=== PATIENT | male | born 1960 | race Caucasian/White ===

== ENCOUNTER 2021-12-20 10:36 | Emergency (ER) | payer MEDICAID, OTHER ==
[~2021-12-20] VITALS: Ht 180.3 cm; Wt 63.1 kg
[2021-12-20 10:45] VITALS: BP 139/84
[2021-12-20 11:46] LABS: Albumin 3.4 g/dL (3.4-5.0); BUN/Creatinine Ratio 14.3; Calcium 8.5 mg/dL (8.5-10.1); Magnesium 1.9 mg/dL (1.6-2.6); Potassium 3.8 mmol/L (3.5-5.1)
[2021-12-20 11:49] LABS: Bilirubin, Total 0.6 mg/dL (0.2-1.0); Lactic Acid w/Reflex 2.4 mmol/L (0.4-2.0); Total Protein 6.8 g/dL (6.4-8.2)
[2021-12-20 11:56] LABS: Basophils # (auto) 0.1 10 ^3/uL (0-0.2); Eosinophils # (auto) 0 10 ^3/uL (0-0.8); Hemoglobin 12.3 g/dL (13.5-17.5); Neutrophils # (auto) 6.5 10 ^3/uL (1.6-8.6)
[2021-12-20 12:00] LABS: Basophils % (auto) 0.9 % (0.0-2.0); Eosinophils % (auto) 0.3 % (0.0-7.0); Hematocrit 35.8 % (41.0-53.0); Lymphocytes # (auto) 0.8 10 ^3/uL (0.4-5.4); Mean Corpuscular Hemoglobin 34.8 pg (28.0-32.0); Mean Corpuscular Hgb Conc. 34.3 g/dL (32.0-36.0); Mean Corpuscular Volume 101.6 fL (80.0-100.0); Monocytes # (auto) 0.5 10 ^3/uL (0-1.3); Monocytes % (auto) 5.9 % (0.0-12.0); Neutrophils % (auto) 82.9 % (37.0-80.0); Red Blood Cells 3.52 10^6/uL (4.5-5.90); White Blood Cell 7.8 10^3/uL (4.4-10.8)
[2021-12-20] MEDS ORDERED: CEFD300C2 PO (19:03)
[2021-12-20] MEDS ORDERED: NAP500T PO (19:04)
== END 2021-12-20 20:31 | disposition home or self-care (01) ==
LOC: ER 10:36
DX: M34.1 CR(E)ST syndrome (principal); S60.949A Unspecified superficial injury of unspecified finger, initial encounter; D75.89 Other specified diseases of blood and blood-forming organs; R94.31 Abnormal electrocardiogram [ECG] [EKG]
CPT/HCPCS: 36415; 73200; 80053; 83605; 83735; 84443; 84484; 85025; 87040; 93005

== ENCOUNTER 2021-12-25 09:09 | Inpatient (IN) | payer MEDICAID ==
[~2021-12-25] VITALS: Ht 160 cm; Wt 64.4 kg
[~2021-12-25 09:09] MED LIST: CEFD300C2 PO; NAP500T PO
[2021-12-25] MEDS ORDERED: KETOROLAC TROMETH 30 MG/ML 1ML VIAL IV ONE (10:15)
[2021-12-25] MEDS ORDERED: PIPERACILLIN-TAZOB 3.375GM 100 ML IV ONE (10:15)
[2021-12-25 10:23] LABS: Basophils # (auto) 0.1 10 ^3/uL (0-0.2); Eosinophils # (auto) 0.1 10 ^3/uL (0-0.8); Lymphocytes # (auto) 1.7 10 ^3/uL (0.4-5.4); Monocytes # (auto) 0.5 10 ^3/uL (0-1.3); Red Cell Distribution Width 13.8 % (11.8-14.3)
[2021-12-25 10:24] LABS: Basophils % (auto) 1.1 % (0.0-2.0); Eosinophils % (auto) 1.2 % (0.0-7.0); Hematocrit 36.3 % (41.0-53.0); Lymphocytes % (auto) 19.1 % (10.0-50.0); Mean Corpuscular Hemoglobin 33.6 pg (28.0-32.0); Mean Corpuscular Hgb Conc. 33.1 g/dL (32.0-36.0); Mean Corpuscular Volume 101.2 fL (80.0-100.0); Monocytes % (auto) 5.7 % (0.0-12.0); Neutrophils # (auto) 6.4 10 ^3/uL (1.6-8.6); Neutrophils % (auto) 72.9 % (37.0-80.0); Red Blood Cells 3.59 10^6/uL (4.5-5.90); White Blood Cell 8.7 10^3/uL (4.4-10.8)
[2021-12-25 10:41] LABS: CRP High Sensitivity 0.64 mg/dL (< 0.3); Calcium 8.7 mg/dL (8.5-10.1)
[2021-12-25 12:07] LABS: Urine Bacteria NONE SEEN /hpf (None Seen); Urine Blood TRACE /uL (Negative); Urine Specific Gravity 1.003 (1.001-1.035); Urine WBC <1 /hpf (0 - 3)
[2021-12-25] MEDS: SODIUM CHLORIDE 0.9% 1,000 ML IV SCH ×2 (12:45→18:51)
[2021-12-25] MEDS ORDERED: hydrALAZINE HCL 20 MG/ML VL IV PRN (12:45)
[2021-12-25] MEDS ORDERED: SODIUM CHLORIDE 0.9% 1,000 ML IV ONE (12:45)
[2021-12-25] MEDS ORDERED: VANCOMYCIN PER PHARMACY 0 MG IV SCH (12:45)
[2021-12-25 12:56] LABS: Alcohol, Urine < 3.0 mg/dL (0-10); Amphetamine Screen, Urine NEGATIVE (NEGATIVE); Barbiturate Scree,Urine NEGATIVE (NEGATIVE); Benzodiazephine Screen, Urine POSITIVE (NEGATIVE); Cannabinoid Screen, Urine NEGATIVE (NEGATIVE); Cocaine Screen, Urine NEGATIVE (NEGATIVE); Opiate Scree,Urine NEGATIVE (NEGATIVE); Phencyclidine Screen, Urine NEGATIVE (NEGATIVE)
[2021-12-25] MEDS ORDERED: VANCOMYCIN 1GM/250ML 250 ML IV ONE (13:30)
[2021-12-25] MEDS ORDERED: NICOTINE 14 MG/24HR TOPICAL PATCH TD ONE (13:30)
[2021-12-25 13:40] LABS: Cholesterol 153 mg/dL (< 200)
[2021-12-25 13:43] LABS: HDL Cholesterol 88 mg/dL (40-59); LDL Cholesterol 62 mg/dL (< 100); Triglycerides 93 mg/dL (< 150)
[2021-12-25 13:49] LABS: INR 0.97 (0.9-1.15)
[2021-12-25 17:10] VITALS: BP 142/72
[2021-12-25 18:00] VITALS: BP 142/72
[2021-12-25] MEDS: MORPHINE SULFATE INJ 2 MG/ml SYRG IV PRN ×2 (18:29→22:27)
[2021-12-25] MEDS ORDERED: PNEUMOCOCCAL VACC POLYS 25 MCG/0.5 ML VIAL IM ONE (18:30)
[2021-12-25 20:00] VITALS: BP 141/78
[2021-12-25] MEDS ORDERED: OMEP20TA PO (20:34)
[2021-12-25 22:33] VITALS: BP 141/78
[2021-12-25] MEDS ORDERED: PRED10TA PO (23:44)
[2021-12-25] MEDS ORDERED: ASPI-543 PO (23:44)
[2021-12-25] MEDS ORDERED: GABA-339 PO (23:44)
[2021-12-25] MEDS ORDERED: POTA10TA51 PO (23:44)
[2021-12-25] MEDS ORDERED: METO25TA5 PO (23:44)
[2021-12-25] MEDS ORDERED: NIFE1TAB31 PO (23:44)
[2021-12-26] MEDS: VANCOMYCIN 1GM/250ML 250 ML IV SCH ×2 (02:09→14:48)
[2021-12-26] MEDS: MORPHINE SULFATE INJ 2 MG/ml SYRG IV PRN ×5 (02:14→20:24)
[2021-12-26 05:08] VITALS: BP 134/84
[2021-12-26 05:48] LABS: Basophils # (auto) 0 10 ^3/uL (0-0.2); Basophils % (auto) 0.7 % (0.0-2.0); Eosinophils # (auto) 0.1 10 ^3/uL (0-0.8); Lymphocytes # (auto) 1.4 10 ^3/uL (0.4-5.4); Monocytes # (auto) 0.5 10 ^3/uL (0-1.3)
[2021-12-26 05:50] LABS: Eosinophils % (auto) 1.4 % (0.0-7.0); Hematocrit 31.6 % (41.0-53.0); Hemoglobin 10.7 g/dL (13.5-17.5); Lymphocytes % (auto) 19.7 % (10.0-50.0); Mean Corpuscular Hemoglobin 34.5 pg (28.0-32.0); Mean Corpuscular Volume 101.5 fL (80.0-100.0); Monocytes % (auto) 6.9 % (0.0-12.0); Neutrophils # (auto) 4.9 10 ^3/uL (1.6-8.6); Neutrophils % (auto) 71.3 % (37.0-80.0); Nucleated Red Blood Cells % 0.1 %; Red Blood Cells 3.11 10^6/uL (4.5-5.90); Red Cell Distribution Width 13.8 % (11.8-14.3); White Blood Cell 6.9 10^3/uL (4.4-10.8)
[2021-12-26 06:02] LABS: Albumin 2.7 g/dL (3.4-5.0); BUN/Creatinine Ratio 8.8; Bilirubin, Total 0.3 mg/dL (0.2-1.0); Calcium 8.2 mg/dL (8.5-10.1); Total Protein 5.8 g/dL (6.4-8.2)
[2021-12-26] MEDS: SODIUM CHLORIDE 0.9% 1,000 ML IV SCH ×2 (07:01→17:27)
[2021-12-26 08:57] VITALS: BP 142/85
[2021-12-26] MEDS: ENOXAPARIN SOD 40 MG/0.4 ML SYRINGE SC SCH (09:09)
[2021-12-26] MEDS: NICOTINE 14 MG/24HR TOPICAL PATCH TD SCH (09:11)
[2021-12-26 13:00] VITALS: BP 111/72
[2021-12-26 16:47] VITALS: BP 133/89
[2021-12-26] MEDS: PIPERACILLIN-TAZOB 3.375GM 100 ML IV SCH (18:34)
[2021-12-26 20:00] VITALS: BP 130/83
[2021-12-26 22:00] VITALS: BP 132/85
[2021-12-26] MEDS: GABAPENTIN 300 MG CAP PO SCH (22:10)
[2021-12-26] MEDS: METOPROLOL TARTRATE 25 MG TAB PO SCH (22:11)
[2021-12-27] MEDS: PIPERACILLIN-TAZOB 3.375GM 100 ML IV SCH ×3 (00:29→13:01)
[2021-12-27] MEDS: MORPHINE SULFATE INJ 2 MG/ml SYRG IV PRN ×4 (00:37→22:13)
[2021-12-27] MEDS: VANCOMYCIN 1GM/250ML 250 ML IV SCH ×2 (02:04→15:58)
[2021-12-27 05:00] VITALS: BP 142/82
[2021-12-27 05:29] LABS: BUN/Creatinine Ratio 5.1; Calcium 9.1 mg/dL (8.5-10.1); Potassium 3.7 mmol/L (3.5-5.1)
[2021-12-27] MEDS: GABAPENTIN 300 MG CAP PO SCH ×3 (06:19→22:11)
[2021-12-27] MEDS: SODIUM CHLORIDE 0.9% 1,000 ML IV SCH ×2 (06:58→22:21)
[2021-12-27 08:00] VITALS: BP_SYST 122; BP_SYST 130; BP_DIAS 80; BP_DIAS 83
[2021-12-27] MEDS: FAMOTIDINE 20 MG TAB PO SCH (09:36)
[2021-12-27] MEDS: METOPROLOL TARTRATE 25 MG TAB PO SCH ×2 (09:36→22:12)
[2021-12-27] MEDS: ENOXAPARIN SOD 40 MG/0.4 ML SYRINGE SC SCH (09:37)
[2021-12-27] MEDS: NIFEdipine ER 30 MG TAB PO SCH (09:37)
[2021-12-27] MEDS: NICOTINE 14 MG/24HR TOPICAL PATCH TD SCH (09:38)
[2021-12-27 12:00] VITALS: BP 145/85
[2021-12-27 16:00] VITALS: BP 121/75
[2021-12-27 20:00] VITALS: BP 134/81
[2021-12-28] MEDS: MORPHINE SULFATE INJ 2 MG/ml SYRG IV PRN ×5 (02:21→22:24)
[2021-12-28 06:00] VITALS: BP 137/78
[2021-12-28] MEDS: VANCOMYCIN 1GM/250ML 250 ML IV SCH ×2 (06:53→20:08)
[2021-12-28] MEDS: GABAPENTIN 300 MG CAP PO SCH ×3 (06:53→22:23)
[2021-12-28 08:00] VITALS: BP 115/73
[2021-12-28] MEDS: cefTRIAXone 1GM/50ML D5W 50 ML IV SCH (10:44)
[2021-12-28] MEDS: FAMOTIDINE 20 MG TAB PO SCH (10:46)
[2021-12-28] MEDS: METOPROLOL TARTRATE 25 MG TAB PO SCH ×2 (10:46→22:24)
[2021-12-28] MEDS: NIFEdipine ER 30 MG TAB PO SCH (10:47)
[2021-12-28] MEDS: ENOXAPARIN SOD 40 MG/0.4 ML SYRINGE SC SCH (10:47)
[2021-12-28] MEDS: NICOTINE 14 MG/24HR TOPICAL PATCH TD SCH (10:48)
[2021-12-28] MEDS: SODIUM CHLORIDE 0.9% 1,000 ML IV SCH (11:54)
[2021-12-28 12:00] VITALS: BP 135/73
[2021-12-28] MEDS ORDERED: ACETAMINOPHEN 325 MG TAB PO PRN (13:45)
[2021-12-28 16:00] VITALS: BP 120/74
[2021-12-28 20:00] VITALS: BP 119/74
[2021-12-28 22:00] VITALS: BP 119/74
[2021-12-29] MEDS: MORPHINE SULFATE INJ 2 MG/ml SYRG IV PRN ×3 (02:11→10:53)
[2021-12-29] MEDS: SODIUM CHLORIDE 0.9% 1,000 ML IV SCH ×2 (02:12→16:52)
[2021-12-29 05:06] LABS: Basophils # (auto) 0.1 10 ^3/uL (0-0.2); Basophils % (auto) 1.3 % (0.0-2.0); Eosinophils # (auto) 0.2 10 ^3/uL (0-0.8); Eosinophils % (auto) 2.3 % (0.0-7.0); Hematocrit 38.6 % (41.0-53.0); Hemoglobin 12.7 g/dL (13.5-17.5); Lymphocytes # (auto) 1.3 10 ^3/uL (0.4-5.4); Lymphocytes % (auto) 19.6 % (10.0-50.0); Mean Corpuscular Hemoglobin 33.2 pg (28.0-32.0); Mean Corpuscular Hgb Conc. 32.9 g/dL (32.0-36.0); Mean Corpuscular Volume 100.9 fL (80.0-100.0); Monocytes # (auto) 0.8 10 ^3/uL (0-1.3); Monocytes % (auto) 11.7 % (0.0-12.0); Neutrophils # (auto) 4.4 10 ^3/uL (1.6-8.6); Neutrophils % (auto) 65.1 % (37.0-80.0); Red Blood Cells 3.83 10^6/uL (4.5-5.90); Red Cell Distribution Width 13.6 % (11.8-14.3); White Blood Cell 6.8 10^3/uL (4.4-10.8)
[2021-12-29 05:23] LABS: BUN/Creatinine Ratio 8.6; Calcium 9.4 mg/dL (8.5-10.1)
[2021-12-29] MEDS: GABAPENTIN 300 MG CAP PO SCH ×3 (05:31→22:18)
[2021-12-29 05:39] LABS: INR 1.01 (0.9-1.15)
[2021-12-29] MEDS: cefTRIAXone 1GM/50ML D5W 50 ML IV SCH (09:54)
[2021-12-29] MEDS: METOPROLOL TARTRATE 25 MG TAB PO SCH ×2 (09:55→22:17)
[2021-12-29] MEDS: FAMOTIDINE 20 MG TAB PO SCH (09:55)
[2021-12-29] MEDS: NIFEdipine ER 30 MG TAB PO SCH (09:56)
[2021-12-29] MEDS: ENOXAPARIN SOD 40 MG/0.4 ML SYRINGE SC SCH (09:57)
[2021-12-29] MEDS: NICOTINE 14 MG/24HR TOPICAL PATCH TD SCH (09:57)
[2021-12-29 10:24] VITALS: BP 125/76
[2021-12-29] MEDS: VANCOMYCIN 1GM/250ML 250 ML IV SCH (10:45)
[2021-12-29] MEDS ORDERED: LIDOCAINE HCL 100 MG/5ML (2%) SYRG INJ IV ONE (11:23)
[2021-12-29] MEDS ORDERED: ONDANSETRON HCL 4 MG/2 ML VIAL IV ONE (11:23)
[2021-12-29 14:31] VITALS: BP 126/75
[2021-12-29] MEDS ORDERED: BUPIVACAINE 0.25% INJ 50ML VIAL ONE (14:35)
[2021-12-29] MEDS ORDERED: fentaNYL CITRATE 100 MCG/2 ML VL ONE (14:47)
[2021-12-29] MEDS ORDERED: PROPOFOL 10 MG/ML 20 ML IV ONE (14:48)
[2021-12-29] MEDS ORDERED: MIDAZOLAM HCL 2MG/2ML 2ml VIAL (1mg/ml) ONE (14:48)
[2021-12-29] MEDS ORDERED: ONDANSETRON HCL 4 MG/2 ML VIAL IV PRN (16:00)
[2021-12-29] MEDS ORDERED: HYDROmorphone HCL 2 MG/ML VL/or syr IV PRN ×2 (16:00)
[2021-12-29 17:18] VITALS: BP 140/75
[2021-12-29] MEDS: OXYCODONE W/ ACETAMINOPHEN 5/325MG TABLET PO PRN (21:04)
[2021-12-29 22:00] VITALS: BP 122/74
[2021-12-30] MEDS: VANCOMYCIN 1GM/250ML 250 ML IV SCH ×2 (00:23→14:00)
[2021-12-30] MEDS: MORPHINE SULFATE INJ 2 MG/ml SYRG IV PRN (00:41)
[2021-12-30] MEDS: OXYCODONE W/ ACETAMINOPHEN 5/325MG TABLET PO PRN ×2 (04:53→09:29)
[2021-12-30 05:00] VITALS: BP 135/78
[2021-12-30] MEDS: GABAPENTIN 300 MG CAP PO SCH ×2 (05:40→14:00)
[2021-12-30] MEDS: SODIUM CHLORIDE 0.9% 1,000 ML IV SCH (06:51)
[2021-12-30 09:00] VITALS: BP 124/76
[2021-12-30] MEDS: cefTRIAXone 1GM/50ML D5W 50 ML IV SCH (09:27)
[2021-12-30] MEDS: NICOTINE 14 MG/24HR TOPICAL PATCH TD SCH (09:29)
[2021-12-30] MEDS: ENOXAPARIN SOD 40 MG/0.4 ML SYRINGE SC SCH (10:00)
[2021-12-30] MEDS ORDERED: SULF400T11 PO (10:41)
[2021-12-30] MEDS ORDERED: HYDR-4798 PO (10:41)
[2021-12-30] MEDS: FAMOTIDINE 20 MG TAB PO SCH (11:05)
[2021-12-30] MEDS: METOPROLOL TARTRATE 25 MG TAB PO SCH (11:05)
[2021-12-30] MEDS: NIFEdipine ER 30 MG TAB PO SCH (11:05)
[2021-12-30 13:00] VITALS: BP 125/75
== END 2021-12-30 14:38 | disposition home or self-care (01) | DRG 316 ==
LOC: ER 09:09 → OVERFLOW 13:07 → EAST 17:02
PROVIDERS: ADMIT Registered Nurse; ATTEND Hospitalist
PROC: 0X6R0Z2 Detachment at Left Middle Finger, Mid, Open Approach (ICD-10-PCS; principal; 2021-12-29 14:45)
DX: S61.203A Unspecified open wound of left middle finger without damage to nail, initial encounter (principal); I96 Gangrene, not elsewhere classified; M34.1 CR(E)ST syndrome; M19.042 Primary osteoarthritis, left hand; I10 Essential (primary) hypertension; M06.9 Rheumatoid arthritis, unspecified; L08.9 Local infection of the skin and subcutaneous tissue, unspecified; Z20.822 Contact with and (suspected) exposure to COVID-19; M89.542 Osteolysis, left hand; F12.90 Cannabis use, unspecified, uncomplicated; X58.XXXA Exposure to other specified factors, initial encounter; Z72.0 Tobacco use; Z72.89 Other problems related to lifestyle; Y93.89 Activity, other specified; Y92.89 Other specified places as the place of occurrence of the external cause; Y99.8 Other external cause status
CPT/HCPCS: 36415; 73120; 73130; 73218; 80048; 80053; 80061; 80202; 80307; 80320; 81001; 83036; 83605; 83880; 85025; 85610; 85730; 86141; 86850; 86900; 86901; 87040; 87070; 87075; 87077; 87081; 87186; 87205; 93005; 96361; 96365; 96367; 96375; G0378; J0696; J1885; J2250; J2405; J2543; J2704; J3490

== ENCOUNTER 2022-01-05 11:18 | Inpatient (IN) | payer MEDICAID ==
[~2022-01-05] VITALS: Ht 180.3 cm; Wt 67.3 kg
[~2022-01-05 11:18] MED LIST changes: +ASPI-543 PO; -CEFD300C2 PO; +GABA-339 PO; +HYDR-4798 PO; +METO25TA5 PO; -NAP500T PO; +NIFE1TAB31 PO; +OMEP20TA PO; +POTA10TA51 PO; +PRED10TA PO; +SULF400T11 PO
[2022-01-05] MEDS ORDERED: SODIUM CHLORIDE 0.9% 1,000 ML IVB ONE (12:30)
[2022-01-05 12:47] LABS: Basophils # (auto) 0 10 ^3/uL (0-0.2); Basophils % (auto) 0.5 % (0.0-2.0); Eosinophils # (auto) 0.1 10 ^3/uL (0-0.8); Eosinophils % (auto) 1.6 % (0.0-7.0); Hematocrit 35.1 % (41.0-53.0); Hemoglobin 11.4 g/dL (13.5-17.5); Lymphocytes # (auto) 0.3 10 ^3/uL (0.4-5.4); Lymphocytes % (auto) 3.8 % (10.0-50.0); Mean Corpuscular Hemoglobin 32.8 pg (28.0-32.0); Mean Corpuscular Hgb Conc. 32.5 g/dL (32.0-36.0); Mean Corpuscular Volume 100.9 fL (80.0-100.0); Monocytes # (auto) 0.4 10 ^3/uL (0-1.3); Monocytes % (auto) 5.7 % (0.0-12.0); Neutrophils # (auto) 6.8 10 ^3/uL (1.6-8.6); Neutrophils % (auto) 88.4 % (37.0-80.0); Nucleated Red Blood Cells % 0.1 %; Red Blood Cells 3.48 10^6/uL (4.5-5.90); Red Cell Distribution Width 14.4 % (11.8-14.3); White Blood Cell 7.7 10^3/uL (4.4-10.8)
[2022-01-05 13:07] LABS: BUN/Creatinine Ratio 7.3; Potassium 5.3 mmol/L (3.5-5.1)
[2022-01-05 13:18] LABS: Bilirubin, Total 0.4 mg/dL (0.2-1.0); Total Protein 6.7 g/dL (6.4-8.2)
[2022-01-05] MEDS ORDERED: SODIUM CHLORIDE 0.9% 1,000 ML IV ONE (15:00)
[2022-01-05 16:08] LABS: Urine Bacteria NONE SEEN /hpf (None Seen); Urine Blood Negative /uL (Negative); Urine Mucus FEW (None Seen); Urine Specific Gravity 1.011 (1.001-1.035); Urine WBC <1 /hpf (0 - 3)
[2022-01-05 16:50] LABS: Albumin 2.7 g/dL (3.4-5.0); Calcium 8.4 mg/dL (8.5-10.1)
[2022-01-05 16:52] LABS: Bilirubin, Total 0.2 mg/dL (0.2-1.0); Total Protein 6.2 g/dL (6.4-8.2)
[2022-01-05] MEDS ORDERED: IOHEXOL 350 MG/ML 100ML IJ ONE ×2 (17:36→21:02)
[2022-01-05] MEDS ORDERED: ACETAMINOPHEN 325 MG TAB PO ONE (20:00)
[2022-01-05] MEDS ORDERED: ONDANSETRON HCL 4 MG/2 ML VIAL IV PRN (23:00)
[2022-01-05] MEDS: SODIUM CHLORIDE 0.9% 1,000 ML IV SCH (23:22)
[2022-01-05] MEDS: HYDROcodone-ACET 5/325MG TAB PO PRN (23:22)
[2022-01-06 01:51] VITALS: BP 111/54
[2022-01-06] MEDS: ACETAMINOPHEN 325 MG TAB PO PRN (02:18)
[2022-01-06] MEDS: HYDROcodone-ACET 5/325MG TAB PO PRN ×4 (04:28→18:45)
[2022-01-06 05:00] VITALS: BP 92/53
[2022-01-06 07:34] LABS: Basophils # (auto) 0 10 ^3/uL (0-0.2); Basophils % (auto) 0.1 % (0.0-2.0); Eosinophils # (auto) 0.2 10 ^3/uL (0-0.8); Eosinophils % (auto) 5.7 % (0.0-7.0); Hematocrit 32.8 % (41.0-53.0); Hemoglobin 10.6 g/dL (13.5-17.5); Lymphocytes # (auto) 0.4 10 ^3/uL (0.4-5.4); Lymphocytes % (auto) 10.7 % (10.0-50.0); Mean Corpuscular Hemoglobin 32.9 pg (28.0-32.0); Mean Corpuscular Hgb Conc. 32.3 g/dL (32.0-36.0); Mean Corpuscular Volume 101.9 fL (80.0-100.0); Monocytes # (auto) 0.1 10 ^3/uL (0-1.3); Monocytes % (auto) 3.4 % (0.0-12.0); Neutrophils % (auto) 80.1 % (37.0-80.0); Nucleated Red Blood Cells % 0.1 %; Red Blood Cells 3.22 10^6/uL (4.5-5.90); Red Cell Distribution Width 14.6 % (11.8-14.3); White Blood Cell 3.7 10^3/uL (4.4-10.8)
[2022-01-06 07:51] LABS: Alanine Aminotransferase 25 U/L (16-61); Albumin 2.5 g/dL (3.4-5.0); Anion Gap 7 (5-15); Aspartate Aminotransferase 41 U/L (15-37); BUN/Creatinine Ratio 9.7; Blood Urea Nitrogen 10 mg/dL (7-18); Carbon Dioxide 22 mmol/L (21-32); Chloride 109 mmol/L (98-107); GFR African American 94 mL/min; GFR Non-African American 78 mL/min; Glucose 85 mg/dL (74-106); Potassium 4.1 mmol/L (3.5-5.1); Sodium 138 mmol/L (136-145)
[2022-01-06 07:55] LABS: Alkaline Phosphatase 53 U/L (45-117); Bilirubin, Total 0.3 mg/dL (0.2-1.0); Total Protein 5.7 g/dL (6.4-8.2)
[2022-01-06 09:00] VITALS: BP 95/61
[2022-01-06] MEDS: PANTOPRAZOLE 40 MG TAB PO SCH (10:11)
[2022-01-06] MEDS: ENOXAPARIN SOD 40 MG/0.4 ML SYRINGE SC SCH (10:11)
[2022-01-06] MEDS: GABAPENTIN 300 MG CAP PO SCH ×2 (12:21→21:49)
[2022-01-06] MEDS: SODIUM CHLORIDE 0.9% 1,000 ML IV SCH (12:22)
[2022-01-06 13:00] VITALS: BP 89/52
[2022-01-06 17:00] VITALS: BP 108/70
[2022-01-06 22:37] VITALS: BP 96/60
[2022-01-07] MEDS: HYDROcodone-ACET 5/325MG TAB PO PRN ×3 (00:05→09:12)
[2022-01-07] MEDS: SODIUM CHLORIDE 0.9% 1,000 ML IV SCH ×2 (00:07→01:07)
[2022-01-07] MEDS: ACETAMINOPHEN 325 MG TAB PO PRN (03:19)
[2022-01-07 05:04] VITALS: BP 106/59
[2022-01-07] MEDS: GABAPENTIN 300 MG CAP PO SCH ×2 (05:16→13:26)
[2022-01-07 09:00] VITALS: BP 102/55
[2022-01-07] MEDS: PANTOPRAZOLE 40 MG TAB PO SCH (09:11)
[2022-01-07] MEDS: ENOXAPARIN SOD 40 MG/0.4 ML SYRINGE SC SCH (09:11)
[2022-01-07 13:00] VITALS: BP 91/59
[2022-01-07] MEDS ORDERED: DOXY-332 PO (15:13)
[2022-01-07] MEDS ORDERED: GABA-339 PO (15:38)
[2022-01-07 16:27] VITALS: BP 91/59
[2022-01-07 17:00] VITALS: BP 139/81
== END 2022-01-07 18:02 | disposition home or self-care (01) | DRG 351 ==
LOC: ER 11:18 → OVERFLOW 22:55 → EAST 01-06 01:14
PROVIDERS: ADMIT Nurse Practitioner; ATTEND Internal Medicine
DX: S61.203A Unspecified open wound of left middle finger without damage to nail, initial encounter (principal); E44.0 Moderate protein-calorie malnutrition; N17.9 Acute kidney failure, unspecified; G89.4 Chronic pain syndrome; I73.00 Raynaud's syndrome without gangrene; I10 Essential (primary) hypertension; Z20.822 Contact with and (suspected) exposure to COVID-19; M19.90 Unspecified osteoarthritis, unspecified site; I95.9 Hypotension, unspecified; X58.XXXA Exposure to other specified factors, initial encounter; Y93.89 Activity, other specified; Y92.89 Other specified places as the place of occurrence of the external cause; Z89.022 Acquired absence of left finger(s); Z68.20 Body mass index [BMI] 20.0-20.9, adult; Y99.8 Other external cause status
CPT/HCPCS: 36415; 73200; 74175; 80053; 81001; 82553; 83605; 85025; 87040; 87081; 93005; 96360; 96361; G0378

== ENCOUNTER 2022-01-27 11:15 | Emergency (ER) | payer MEDICAID ==
[~2022-01-27] VITALS: Ht 175.3 cm; Wt 62.0 kg
[~2022-01-27 11:15] MED LIST changes: +DOXY-332 PO; -SULF400T11 PO
[2022-01-27 15:16] VITALS: BP 107/58
[2022-01-27] MEDS ORDERED: MORPHINE SULFATE INJ 2 MG/ml SYRG IM ONE (15:45)
[2022-01-27] MEDS ORDERED: ONDANSETRON ODT 4 MG TAB PO ONE (15:45)
[2022-01-27] MEDS ORDERED: GABA-339 PO (15:52)
[2022-01-27] MEDS ORDERED: SULF800T7 PO (15:52)
== END 2022-01-27 18:16 | disposition home or self-care (01) ==
LOC: ER 11:15
DX: M06.9 Rheumatoid arthritis, unspecified (principal); G89.29 Other chronic pain; F17.210 Nicotine dependence, cigarettes, uncomplicated; F12.10 Cannabis abuse, uncomplicated
CPT/HCPCS: 99281; J2270; Q0162

== ENCOUNTER 2022-05-27 09:32 | Emergency (ER) | payer MEDICAID ==
[~2022-05-27 09:32] MED LIST changes: +SULF800T7 PO
== END 2022-05-27 11:44 | disposition left against medical advice (07) ==
LOC: ER 09:32
DX: R53.1 Weakness (principal); Z53.21 Procedure and treatment not carried out due to patient leaving prior to being seen by health care provider

== ENCOUNTER 2025-03-14 06:33 | Inpatient (IN) | payer MEDICARE, OTHER ==
[~2025-03-14] VITALS: Ht 180.3 cm; Wt 54.9 kg
[~2025-03-14 06:33] MED LIST changes: -DOXY-332 PO; +DOXY100C79 PO; +POTA-36 PO; -POTA10TA51 PO; +SULF800T23 PO; -SULF800T7 PO
[2025-03-14] MEDS: SODIUM CHLORIDE 0.9% 1,000 ML IV ONE ×2 (06:45→12:41)
[2025-03-14] MEDS: MORPHINE SULFATE 4 MG/ML SYR/VIAL IV ONE (06:45)
[2025-03-14] MEDS: ONDANSETRON HCL 4 MG/2 ML VIAL IV ONE (06:45)
--- NOTE | 2025-03-14 06:50 | ED.PDOC ---
History of Present Illness HPI Comments 64-year-old male BIBNader with prior medical history of arthritis, crest syndrome: Hernia repair, phalangectomy to 2nd 3rd and 4th digits bilaterally and a chief complaint of abdominal pain. EMS report picking the patient up from [facility], due from having a left lower quadrant pain, but became diffuse in the ER. Patient states on having N/V associated with diffuse abdominal pain for the past 2.5 months. Denies any other symptoms at this time. Chief Complaint: Abdominal Pain Time Seen by MD: 06:45 Primary Care Provider: ZOHAIB Reviewed Notes: Nurses Notes, Medications, Allergies Allergies: Coded Allergies: NO KNOWN ALLERGIES (Unverified , 09/30/14) Home Meds Active Scripts Sulfamethoxazole W/Trimethopri (Trimethoprim/Sulfamethoxa) 1 Tab Tab, 1 TAB PO BID for 7 Days, #14 TAB 0 Refills Prov:CLARIBEL LANTIGUA 01/27/22 Gabapentin (Gabapentin) 600 Mg Tab, 1 TAB PO BID, #30 TAB 0 Refills Prov:CLARIBEL LANTIGUA 01/27/22 Gabapentin (Gabapentin) 600 Mg Tab, 1200 MG PO TID for 14 Days, #84 MG Prov:JAYESH DONOHUE MD 01/07/22 Doxycycline (Monohydrate) (Doxycycline) 100 Mg Cap, 100 MG PO BID for 7 Days, #14 CAP Prov:JAYESH DONOHUE MD 01/07/22 Hydrocodone-Acetaminophen (Hydrocodone Bitartrate/AC 10-325 mg) 1 Tab Tab, 1 TAB PO Q8HPRN PRN, #20 TAB Prov:FARHEEN KIMBROUGH MD 12/30/21 Reported Medications Metoprolol Tartrate (Metoprolol Tartrate) 25 Mg Tab, 37.5 MG PO BID for 30 Days, MG 12/25/21 Aspirin (Aspir-Low) 81 Mg Tab, 81 MG PO DAILY for 30 Days, MG 12/25/21 Potassium Chloride (POTASSIUM CHLORIDE CR) 10 Meq Tb, 20 MEQ PO DAILY, TAB 12/25/21 Prednisone (Prednisone) 10 Mg Tab, 10 MG PO DAILY, MG 12/25/21 Nifedipine (Nifedipine Er) 30 Mg Tab, 1 TAB PO DAILY, #90 TAB 1 Refill 12/25/21 Omeprazole (Gnp Omeprazole) 20 Mg Tab, 40 MG PO DAILY, TAB 12/25/21 Information Source: Patient Mode of Arrival: EMS Severity: Moderate Timing: Weeks Duration: Since onset Prehospital treatment: None Past Medical History PAST MEDICAL HISTORY: Arthritis Past Medical History (Other): Crest syndrome Surgical History: Hernia Repair Surgical History (Other): phalangectomy to 2nd 3rd and 4th digits bilaterally Family History Family History: Reviewed,noncontributory to illness, Unknown Social History Smoker: Cigarettes, Less Than 1 Pack/Day Alcohol: Sober Drugs: Marijuana Lives In: Home Constitutional: denies: chills, diaphoresis, fatigue, fever, malaise, sweats, weakness, others EENTM: denies: blurred vision, double vision, ear bleeding, ear discharge, ear drainage, ear pain, ear ringing, eye pain, eye redness, hearing loss, mouth pain, mouth swelling, nasal discharge, nose bleeding, nose congestion, nose pain, photophobia, tearing, throat pain, throat swelling, voice changes, others Respiratory: denies: cough, hemoptysis, orthopnea, SOB at rest, shortness of breath, SOB with excertion, stridor, wheezing, others Cardiovascular: denies: chest pain, dizzy spells, diaphoresis, Dyspnea on exertion, edema, irregular heart beat, left arm pain, lightheadedness, palpitations, PND, syncope, others Gastrointestinal: reports: abdominal pain, nausea, vomiting; denies: abdomen distended, blood streaked bowels, constipated, diarrhea, dysphagia, difficulty swallowing, hematemesis, melena, poor appetite, poor fluid intake, rectal bleeding, rectal pain, others Genitourinary: denies: burning, dysuria, flank pain, frequency, hematuria, incontinence, penile discharge, penile sore, pain, testicle pain, testicle swelling, urgency, others Neurological: denies: dizziness, fainting, headache, left sided numbness, left sided weakness, numbness, paresthesia, pre-existing deficit, right sided numbness, right sided weakness, seizure, speech problems, tingling, tremors, weakness, others Musculoskeletal: denies: back pain, gout, joint pain, joint swelling, muscle pain, muscle stiffness, neck pain, others Integumetry: denies: bruises, change in color, change in hair/nails, dryness, laceration, lesions, lumps, rash, wounds, others Allergic/Immunocompromised: denies: Difficulty Healing, Frequent Infections, Hives, Itching, others Hematologic/Lymphatic: denies: anemia, blood clots, easy bleeding, easy bruising, swollen glands, others Endocrine: denies: excessive hunger, excessive sweating, excessive thirst, excessive urination, flushing, intolerance to cold, intolerance to heat, unexplained weight gain, unexplained weight loss, others Psychiatric: denies: anxiety, bipolar disorder, depression, hopeless, panic disorder, schizophrenia, sleepless, suicidal, others All Other Systems: Reviewed and Negative Physical Exam General Appearance: Moderate Distress, Thin HEENT: Normal ENT Inspection, Pharynx Normal, TMs Normal Neck: Full Range of Motion, Non-Tender, Normal, Normal Inspection Respiratory: Chest Non-Tender, Lungs Clear, No Accessory Muscle Use, No Respiratory Distress, Normal Breath Sounds Cardiovascular: No Edema, No JVD, No Murmur, No Gallop, Normal Peripheral Pulses, Regular Rate/Rhythm Breast Exam: Deferred Gastrointestinal: No Organomegaly, Non Tender, No Pulsatile Mass, Normal Bowel Sounds, Soft Genitalia: Deferred Pelvic: Deferred Rectal: Deferred Extremities: No calf tenderness, Normal capillary refill, Normal inspection, Normal range of motion, Non-tender, No pedal edema Musculoskeletal : Apperance: Normal Neurologic: Alert, auto research engineer II-XII nml as Tested, No Motor Deficits, Normal Affect, Normal Mood, No Sensory Deficits Cerebellar Function: Normal Reflexes: Normal Skin: Dry, Normal Color, Warm Peripheral Pulses: 3+ Radial (R), 3+ Radial (L) Lymphatic: No Adenopathy Was a procedure done? Was a procedure done?: No Differential Dx Considerations may include: Gastroenteritis Electrolyte imbalance X-Ray, Labs, Meds, VS Vital Signs Date Time Temp Pulse Resp B/P (MAP) Pulse Ox O2 Delivery O2 Flow Rate FiO2 03/14/25 06:57 97.8 77 18 90/61 (71) 99 97.8 03/14/25 06:42 98.4 59 14 98/68 96 98.4 Patient alert. Has been having nausea vomiting. Blood pressure low. Establish intravenous access. Was given fluids. Saturation pristine on room air. Possible gastroenteritis. Explained to the patient. Continue monitoring. Time of 1ST Reevaluation: 07:15 Reevaluation 1ST: Unchanged Patient Education/Counseling: Diagnosis, Treatment, Prognosis Family Education/Counseling: No Family Present SEPSIS Sepsis Screen Physician Orders Complete Blood Count (03/14/25 06:42) Urinalysis (03/14/25 06:42) Basic Metabolic Panel (03/14/25 06:42) Sodium Chloride 0.9% (03/14/25 06:45) Vital Signs Date Time Temp Pulse Resp B/P (MAP) Pulse Ox O2 Delivery O2 Flow Rate FiO2 03/14/25 06:57 97.8 77 18 90/61 (71) 99 97.8 03/14/25 06:42 98.4 59 14 98/68 96 98.4 Departure 1 Departure Time of Disposition: 07:00 Impression: Primary Impression: Hypotension Qualified Codes: I95.9 - Hypotension, unspecified Additional Impression: Gastroenteritis Disposition: ADMITTED INPATIENT Admit to: Med Surg Condition: Guarded Critical Care Note Critical Care Time?: Yes (90 min-critical care time only) Stability Stability form required: No Heart Score Heart Score: Heart Score Response (Comments) Value History N/A 0 EKG N/A 0 Age N/A 0 Risk Factors N/A 0 Troponin N/A 0 Total 0 I personally scribed for NATACHA LOWE MD ([email or web address]) on 03/14/25 at 06:50. Electronically submitted by Emil Martinez ([email or web address]). I personally scribed for NATACHA LOWE MD ([email or web address]) on 03/14/25 at 06:51. Electronically submitted by Emil Martinez ([email or web address]). NATACHA LOWE MD Mar 14, 2025 06:50
[2025-03-14 06:58] VITALS: PULSE 70; RESP 18; O2SAT 99
[2025-03-14 07:24] LABS: Hematocrit 35.2 % (41.0-53.0); Hemoglobin 11.2 g/dL (13.5-17.5); Mean Corpuscular Hemoglobin 29.1 pg (28.0-32.0); Mean Corpuscular Volume 91.5 fL (80.0-100.0); Nucleated Red Blood Cells % 0.1 %
[2025-03-14 07:30] LABS: Chloride 100 mmol/L (98-107); Potassium 3.6 mmol/L (3.5-5.1); Sodium 138 mmol/L (136-145)
[2025-03-14 07:31] LABS: Anion Gap 10 (5-15); Calcium 9.9 mg/dL (8.7-10.4); Carbon Dioxide 28 mmol/L (20-31)
[2025-03-14 07:36] LABS: BUN/Creatinine Ratio 19.0 (10.0-20.0); Blood Urea Nitrogen 15 mg/dL (9-23); Glucose 92 mg/dL (74-106)
[2025-03-14 07:48] LABS: Urine Protein, UAD Negative (Negative)
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
[2025-03-14] MEDS ORDERED: ONDANSETRON HCL 4 MG/2 ML VIAL IV PRN (08:45)
[2025-03-14] MEDS ORDERED: MORPHINE SULFATE INJ 2 MG/ml SYRG IV PRN (08:45)
[2025-03-14] MEDS ORDERED: ACETAMINOPHEN 325 MG TAB PO PRN (08:45)
[2025-03-14 09:21] LABS: Amphetamine Screen, Urine Neg (NEGATIVE); Barbiturate Scree,Urine Neg (NEGATIVE); Benzodiazephine Screen, Urine Neg (NEGATIVE); Cannabinoid Screen, Urine Neg (NEGATIVE); Cocaine Screen, Urine Neg (NEGATIVE); Opiate Scree,Urine Pos (NEGATIVE); Phencyclidine Screen, Urine Neg (NEGATIVE)
--- NOTE | 2025-03-14 09:36 | DVH ---
Exam: CT CT AB PEL WO CON-NO ORAL OR IV History: Abdominal pain Comparison Study: None. Technique: Multidetector spiral CT of the abdomen and pelvis was performed from lung bases to pubic s ymphysis. Imaging was performed without intravenous contrast. Coronal and sagittal multiplanar reform ats were obtained from the axial data set by the technologist. Radiation Dose : 1. Abdomen/Pelvis: CTDIvol 5.07 mGy, DLP 249.3 mGy*cm. Findings: Evaluation of vasculature and solid organs is limited due to lack of intravenous contrast use. Lung Bases: Lung bases are clear. Visualized portions of the heart and pericardium are unremarkable. Liver: The liver is normal in size. No focal lesions. Gallbladder and Biliary Tree: The gallbladder is unremarkable. No intrahepatic or extrahepatic biliar y ductal dilatation. Spleen: Unremarkable Pancreas: The pancreas is grossly unremarkable. Adrenal Glands: Unremarkable Kidneys: Kidneys are unremarkable without calculi or hydronephrosis. GI tract: Fluid in the distal esophagus. The visualized portions of the stomach are unremarkable. Fl uid-filled small bowel loops. No evidence of small bowel wall thickening or abnormal dilatation to holland ggest bowel obstruction. There is stool throughout colon. Colonic diverticulosis without acute divert iculitis. The appendix is not visualized, however no inflammatory changes in the right lower quadrant to suggest acute appendicitis. Peritoneum/mesentery/retroperitoneum. No evidence of free intraperitoneal air. No ascites. No evidenc e of suspicious lymphadenopathy. Abdominal Wall: Posterior cul changes from prior hernia repair in the abdominal wall. Vasculature: The visualized abdominal aorta is normal in size and caliber. Evaluation of abdominal a nd pelvic vessels is limited due to lack of intravenous contrast. Urinary Bladder: Urinary bladder is underdistended. Pelvic Organs: Unremarkable Musculoskeletal: No aggressive focal bony lesions, acute fractures or dislocation. Serpiginous hyperd ensity in the bilateral femoral heads compatible with avascular necrosis. No articular collapse. IMPRESSION: 1. Fluid-filled small bowel loops, nonspecific, may be seen with enteritis. 2. Colonic diverticulosis without acute diverticulitis. 3. Avascular necrosis of the bilateral femoral heads.
[2025-03-14] MEDS: HYDROcodone-ACET 5/325MG TAB PO PRN (10:01)
[2025-03-14] MEDS: PANTOPRAZOLE 40 MG TAB PO SCH (10:08)
[2025-03-14] MEDS: METOPROLOL TARTRATE 25 MG TAB PO SCH (10:09)
[2025-03-14] MEDS: ASPirin-EC 81 mg tab PO SCH (10:10)
[2025-03-14] MEDS: SIMETHICONE 80 MG CHEWABLE TABLET PO SCH (10:15)
--- NOTE | 2025-03-14 13:10 | DVH ---
Indication: avn Technique: CT axial images of the left hip are obtained without contrast. Coronal and sagittal reform ats were obtained. Radiation Dose Information: CTDI volume is 8 mGy. Dose-length product is 390 mGy*cm Comparison: CT CT R HIP WITH OUT CONTRAST on DOS: 03/14/25 FINDINGS/IMPRESSION: [id number] left SI degenerative joint disease. [id number] degenerate changes left hip. Sclerotic changes in the left femoral head consistent with history of avascular necrosis. No evidenc e for left femoral hip collapse / fragmentation
--- NOTE | 2025-03-14 13:11 | DVH ---
Indication: avn Technique: CT axial images of the right hip are obtained without contrast. Coronal and sagittal refor mats were obtained. Radiation Dose Information: CTDI volume is 7.75 mGy. Dose-length product is 2.13 mGy*cm Comparison: CT CT L HIP WITH OUT CONTRAST on DOS: 03/14/25 FINDINGS/IMPRESSION: Sclerotic changes of the right femoral head consistent with clinical history of avascular necrosis. No evidence for right femoral head collapse/fragmentation. [id number] degenerate changes of the right hip. [id number] right SI degenerative joint disease. Postsurgical changes at the right inguinal canal region. Colonic diverticular disease.
[2025-03-14] MEDS ORDERED: PATIENTS OWN MEDICATION (Gabapentin 1,200 MG) PO SCH (14:00)
[2025-03-14 15:00] VITALS: BP 97/61; PULSE 62; RESP 15; TEMP 98.1; O2SAT 95; O2SAT 96
[2025-03-14] MEDS: GABAPENTIN 400 MG CAP PO SCH (15:17)
[2025-03-14] MEDS ORDERED: HYDR4TAB3 PO (15:33)
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
[2025-03-14 17:10] VITALS: BP 97/61; PULSE 62; RESP 15; TEMP 98.3; O2SAT 95
[2025-03-14 20:00] VITALS: PULSE 58; RESP 18; O2SAT 95
[2025-03-14 20:47] VITALS: BP 89/47; PULSE 58; RESP 18; TEMP 98; O2SAT 95
[2025-03-14 20:56] VITALS: BP 99/64
[2025-03-15] VITALS (7 sets, daily range): BP systolic 85–106; BP diastolic 47–67; PULSE 52–66; RESP 16–18; TEMP 97.4–98; O2SAT 93–97
[2025-03-15 06:32] LABS: Hematocrit 30.6 % (41.0-53.0); Hemoglobin 10.2 g/dL (13.5-17.5); Mean Corpuscular Hemoglobin 29.1 pg (28.0-32.0); Mean Corpuscular Volume 86.9 fL (80.0-100.0); Nucleated Red Blood Cells % 0.2 %
[2025-03-15 06:45] LABS: Albumin 3.7 g/dL (3.2-4.8); Alkaline Phosphatase 51 U/L (46-116); Anion Gap 10 (5-15); BUN/Creatinine Ratio 17.8 (10.0-20.0); Blood Urea Nitrogen 13 mg/dL (9-23); Calcium 9.3 mg/dL (8.7-10.4); Carbon Dioxide 26 mmol/L (20-31); Glucose 85 mg/dL (74-106); Potassium 3.8 mmol/L (3.5-5.1); Sodium 144 mmol/L (136-145); Total Protein 6.4 g/dL (5.7-8.2)
[2025-03-15 06:46] LABS: Alanine Aminotransferase < 9 U/L (7-40); Bilirubin, Total 0.2 mg/dL (0.2-1.0); Chloride 108 mmol/L (98-107)
[2025-03-15] MEDS ORDERED: SUCR1TAB31 PO (13:06)
[2025-03-15] MEDS ORDERED: ESOM20CA PO (13:06)
[2025-03-15] MEDS ORDERED: AUG875T PO (13:06)
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
== END 2025-03-15 20:21 | DRG 384 ==
LOC: ER 06:33 → EDBD 06:33 → OVERFLOW 08:32 → WEST WING 14:10
PROVIDERS: ADMIT Student in an Organized Health Care Education/Training Program; ATTEND Student in an Organized Health Care Education/Training Program
DX: K27.9 Peptic ulcer, site unspecified, unspecified as acute or chronic, without hemorrhage or perforation (principal); A09 Infectious gastroenteritis and colitis, unspecified; M87.852 Other osteonecrosis, left femur; M87.851 Other osteonecrosis, right femur; K29.00 Acute gastritis without bleeding; Z79.899 Other long term (current) drug therapy; K57.30 Diverticulosis of large intestine without perforation or abscess without bleeding; F17.210 Nicotine dependence, cigarettes, uncomplicated; I10 Essential (primary) hypertension; I95.9 Hypotension, unspecified; M34.1 CR(E)ST syndrome; Z91.199 Patient's noncompliance with other medical treatment and regimen due to unspecified reason
CPT/HCPCS: 36415; 73700; 74176; 80048; 80053; 80307; 81001; 85025; 87081; 99291; 99292; G0378; J2405